=== PATIENT | female | born 2000 | race African-American/Black ===

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

== ENCOUNTER 2024-04-14 09:39 | Emergency (ER) | payer OTHER, SELFPAY ==
[2024-04-14] MEDS ORDERED: Famotidine/PF 20 mg/2ml Vial ONE (10:46)
[2024-04-14] MEDS ORDERED: Ondansetron PF 4 MG/2 ML Vial ONE (10:46)
[2024-04-14 11:21] LABS: #Basophils 0.04 10x3/uL (0.0-0.2); #Eosinphils 0.02 10x3/uL (0.0-0.5); #Monocytes 0.39 10x3/uL (0.0-1.1); #Neutrophils 4.48 10x3/uL (1.5-8.4); %Basophils 0.6 % (0.0-2.0); %Eosinophils 0.3 % (0.0-6.0); %Lymphocytes 23.7 % (18.0-47.0); %Neutrophils 69.1 % (40.0-75.0); Hematocrit 32.5 % (34.9-44.5); Hemoglobin 11.9 g/dL (12.0-15.5); Mean Corpuscular HGB CONC 36.6 g/dL (32.0-36.0); Mean Corpuscular Hemoglobin 31.5 pg (27.0-33.0); Mean Platelet Volume 10.7 fL (7.4-10.4); Platelet Count 285 10x3/uL (150-450); RBC Distribution Width 11.8 % (11.5-14.5); Red Blood Cell (RBC) Count 3.78 10x6/uL (3.90-5.03); White Blood Cell (WBC) Count 6.5 10x3/uL (3.5-10.5)
== END 2024-04-14 12:35 | disposition home or self-care (01) ==
LOC: CSHERS 09:39
DX: O21.0 Mild hyperemesis gravidarum (principal); Z3A.01 Less than 8 weeks gestation of pregnancy
CPT/HCPCS: 36415; 76815; 84702; 85025; 96374; 96375; J2405; S0028

== ENCOUNTER 2024-04-30 16:56 | Emergency (ER) | payer SELFPAY ==
[2024-04-30] MEDS ORDERED: Ondansetron PF 4 MG/2 ML Vial ONE (17:45)
[2024-04-30 17:47] LABS: #Basophils 0.02 10x3/uL (0.0-0.2); #Eosinphils 0.14 10x3/uL (0.0-0.5); #Monocytes 0.44 10x3/uL (0.0-1.1); #Neutrophils 3.68 10x3/uL (1.5-8.4); %Basophils 0.4 % (0.0-2.0); %Eosinophils 2.5 % (0.0-6.0); %Lymphocytes 23.8 % (18.0-47.0); %Monocytes 7.8 % (0.0-10.0); %Neutrophils 65.1 % (40.0-75.0); Hematocrit 33.5 % (34.9-44.5); Hemoglobin 12.4 g/dL (12.0-15.5); Mean Corpuscular Hemoglobin 30.7 pg (27.0-33.0); Mean Corpuscular Volume 82.9 fL (81.6-98.3); Mean Platelet Volume 10.5 fL (7.4-10.4); Platelet Count 325 10x3/uL (150-450); RBC Distribution Width 12.1 % (11.5-14.5); Red Blood Cell (RBC) Count 4.04 10x6/uL (3.90-5.03); White Blood Cell (WBC) Count 5.6 10x3/uL (3.5-10.5)
[2024-04-30 18:04] LABS: ALT (SGPT) 9 U/L (8-55); AST (SGOT) 12 U/L (5-34); Alkaline Phosphatase 60 U/L (40-110); Anion Gap 17 mmol/L (10-20); BUN (Urea Nitrogen) 6 mg/dL (7.0-18.7); Bilirubin, Total 0.5 mg/dL (0.2-1.2); Calc. Creatinine Clearance 0 mL/min (70-130); Calcium 9.5 mg/dL (7.8-10.44); Carbon Dioxide 15 mmol/L (22-29); Chloride 103 mmol/L (98-107); Estimated GFR 131; Globulin 3.6 g/dL (2.4-3.5); Glucose 92 mg/dL (70-105); Lipase 70 U/L (8-78); Potassium 3.1 mmol/L (3.5-5.1); Protein, Total 7.6 g/dL (6.0-8.3); Sodium 132 mmol/L (136-145)
[2024-04-30] MEDS ORDERED: Potassium Chloride 20 MEQ TAB ONE (18:45)
[2024-04-30 19:43] LABS: Bilirubin Neg (Negative); Blood, Urine Negative (Negative); Clarity Slightly Cloudy (Clear); Glucose, Urine (Dipstick) Normal (Negative); Ketone, Urine 150 mg/dL (Negative); Leukocyte 25 (Negative); Nitrite Negative (Negative); Protein, Urine (Dipstick) 30 mg/dl (Neg-Trace); Specific Gravity, Urine 1.025 (1.005-1.030); Urobilinogen Normal mg/dL (Less than 2)
[2024-04-30 20:04] LABS: Bacteria/HPF 3+ HPF (None Seen); CAUTI Indications for Culture Pelvic or flank pain; Mucous/LPF 4+ LPF (<2+); RBC/HPF None Seen HPF (0-3); Squamous Epithelial 0-3 HPF (0-3); Urine Culture Reflex No No; WBC/HPF 0-3 HPF (0-3)
== END 2024-04-30 20:30 | disposition home or self-care (01) ==
LOC: CSHERS 16:56
DX: O21.0 Mild hyperemesis gravidarum (principal); Z3A.09 9 weeks gestation of pregnancy; Z55.6 Problems related to health literacy
CPT/HCPCS: 36415; 80053; 81001; 83690; 84702; 85025; 93005; 93010; 94760; 96374; J2405

== ENCOUNTER 2024-10-27 00:45 | Inpatient (IN) | payer OTHER ==
[2024-10-27 01:18] VITALS: BMI 33.2
[2024-10-27 01:52] LABS: Fetal Membranes Rupture RUPTURE DETECTED (No Rupture)
[2024-10-27] MEDS ORDERED: Misoprostol 200 MCG TAB RC PRN (03:15)
[2024-10-27] MEDS ORDERED: hydrALAZINE 20 MG/ML VIAL SLOW IVP PRN ×2 (03:15→17:06)
[2024-10-27] MEDS ORDERED: Lidocaine 1% (PF) 30 ML VIAL SC PRN (03:15)
[2024-10-27] MEDS ORDERED: Acetaminophen 500 MG TAB PO PRN (03:15)
[2024-10-27] MEDS ORDERED: Diphenoxylate HCl/Atropine Tablet PO PRN (03:15)
[2024-10-27] MEDS ORDERED: Carboprost 250 MCG/ML AMP IM PRN (03:15)
[2024-10-27] MEDS ORDERED: Ibuprofen 800 MG TAB PO PRN (03:15)
[2024-10-27] MEDS ORDERED: Promethazine HCl 25 MG/ML VIAL IM PRN ×3 (03:15→17:06)
[2024-10-27] MEDS ORDERED: Oxytocin 30 units/NS 500 ML 500 ML IVPB SCH (03:15)
[2024-10-27] MEDS ORDERED: fentaNYL 50 mcg/mL 1 mL Vial SLOW IVP PRN (03:17)
[2024-10-27] MEDS ORDERED: Tranexamic Acid 1,000 MG/10 ML VIAL IVP PRN (03:18)
[2024-10-27 03:22] LABS: Hematocrit 31.4 % (34.9-44.5); Hemoglobin 10.7 g/dL (12.0-15.5); Mean Corpuscular HGB CONC 34.1 g/dL (32.0-36.0); Mean Corpuscular Hemoglobin 30.1 pg (27.0-33.0); Mean Corpuscular Volume 88.2 fL (81.6-98.3); Mean Platelet Volume 12.9 fL (7.4-10.4); Platelet Count 195 10x3/uL (150-450); RBC Distribution Width 12.7 % (11.5-14.5); Red Blood Cell (RBC) Count 3.56 10x6/uL (3.90-5.03); White Blood Cell (WBC) Count 6.8 10x3/uL (3.5-10.5)
[2024-10-27] MEDS: Lactated Ringer's 1,000 ML IV SCH (03:30)
[2024-10-27] MEDS: Penicillin G Potassium 5 MILL.UNITS in Sodium Chloride 0.9% 100 ML IVPB SCH (03:39)
[2024-10-27 03:50] LABS: HBsAg Index 0.23 S/CO (0-0.99); Hep B Surf Ag - L&D Non-Reactive S/CO (NonReactive)
[2024-10-27 03:51] LABS: Syphilis Antibody Nonreactive (Nonreactive); Syphilis Antibody Index 0.03 S/CO (<1.00 Non-Reactive)
[2024-10-27 05:46] LABS: HIV (1/2) Antibody/Antigen Non-Reactive (NonReactive); HIV 1/2 INDEX 0.15 S/CO (<1.00)
[2024-10-27] MEDS: Penicillin G 2.5 MILL.units 2.5 MILL.UNITS in Premix 1 BAG IVPB SCH (07:18)
[2024-10-27] MEDS: Oxytocin 30 units/NS 500 ML 500 ML IVPB SCH (07:54)
[2024-10-27] MEDS: Calcium Carbonate 500 MG ChewTAB PO SCH (08:49)
[2024-10-27] MEDS ORDERED: ePHEDrine Sulfate 50 MG/10 ML VIAL SLOW IVP PRN (10:15)
[2024-10-27] MEDS ORDERED: Naloxone HCl 0.4 mg/ml Vial IVP PRN ×2 (10:15)
[2024-10-27] MEDS ORDERED: Ondansetron PF 4 MG/2 ML Vial IVP PRN ×2 (10:15→17:06)
[2024-10-27] MEDS ORDERED: Moisturizing Cream (Eucerin) 113 GM JAR TOP PRN (10:15)
[2024-10-27] MEDS ORDERED: diphenhydrAMINE 50 MG/ML VIAL IVP PRN (10:15)
[2024-10-27] MEDS ORDERED: Lactated Ringer's 500 ML IV PRN (10:15)
[2024-10-27] MEDS ORDERED: Communication Order-Pharmacy FS SCH (10:15)
[2024-10-27] MEDS: fentaNYL 2 mcg/Ropivacaine 0.2% Epidural 100 ML CADD EPIDURAL SCH (10:27)
[2024-10-27] MEDS: Ondansetron PF 4 MG/2 ML Vial IVP PRN (11:55)
[2024-10-27] MEDS ORDERED: Bupivacaine 0.25% HCL 30 ML VIAL ONE (13:00)
[2024-10-27] MEDS ORDERED: diphenhydrAMINE 25 MG CAP PO PRN (17:06)
[2024-10-27] MEDS ORDERED: Benzocaine-Menthol 82.5 ML CAN TOP PRN (17:06)
[2024-10-27] MEDS ORDERED: Milk Of Magnesia 30 ML UDCUP PO PRN (17:06)
[2024-10-27] MEDS ORDERED: HYDROcodone/Acetaminophen 5/325 mg Tablet PO PRN (17:06)
[2024-10-27] MEDS ORDERED: Bisacodyl 10 MG SUPP PR PRN (17:06)
[2024-10-27] MEDS ORDERED: Lanolin Ointment 7 GM TUBE TOP PRN (17:06)
[2024-10-27] MEDS: fentaNYL/Ropivacaine Epidural 100 ML ONE (17:07)
[2024-10-27] MEDS: Famotidine/PF 20 mg/2ml Vial ONE (17:11)
[2024-10-27] MEDS: Ferrous Sulfate 325 MG TAB PO SCH (18:00)
[2024-10-27] MEDS: Boostrix 0.5 ML (Tdap) VIAL (>/=7 yrs of age) IM ONE (18:00)
[2024-10-27] MEDS: Acetaminophen 325 MG TAB PO PRN (20:39)
[2024-10-27] MEDS: Ibuprofen 800 MG TAB PO SCH (21:46)
[2024-10-27] MEDS: Docusate 100 MG CAP PO SCH (21:47)
[2024-10-28] MEDS: Prenatal Vitamin 1 TAB PO SCH (08:54)
[2024-10-29 20:23] VITALS: BP 119/67; TEMP 98.1
== END 2024-10-29 21:50 | disposition home or self-care (01) | DRG 807 ==
LOC: CSHLD/OP 00:45 → CSHLD 02:50 → CSHPED 17:25
PROVIDERS: ADMIT Family Medicine; ATTEND Family Medicine
PROC: 10E0XZZ Delivery of Products of Conception, External Approach (ICD-10-PCS; principal; 2024-10-27)
DX: O99.824 Streptococcus B carrier state complicating childbirth (principal); Z37.0 Single live birth; Z3A.37 37 weeks gestation of pregnancy
CPT/HCPCS: 36415; 51702; 84112; 85027; 86762; 86780; 86850; 86900; 86901; 87340; 87389; 99285; J0665; J2405; J2540; J2590; J3490; J7120

== ENCOUNTER 2025-10-08 15:27 | Emergency (ER) | payer OTHER ==
[2025-10-08 16:30] LABS: Pregnancy Test - Urine (BHCG) Negative (Negative); Pregu Control Background? CLEAR/WHITE (CLR/WHITE); Pregu Control Bar Appear? YES (CONTROL BAR)
[2025-10-08 16:31] LABS: Glucose, Urine (Dipstick) Normal (Negative); Leukocyte Negative (Negative); Protein, Urine (Dipstick) Negative (Neg-Trace); Specific Gravity, Urine 1.020 (1.005-1.030)
[2025-10-08 16:45] LABS: CAUTI Indications for Culture Pelvic or flank pain; Mucous/LPF Rare LPF (<2+); RBC/HPF 0-3 HPF (0-3); WBC/HPF 0-3 HPF (0-3)
[2025-10-08 16:46] LABS: Urine Culture Reflex No No
[2025-10-09 00:44] LABS: Chlamydia by PCR, Vaginal Swab Not Detected (NotDetected); GC by PCR, Vaginal Swab Not Detected (NotDetected)
== END 2025-10-08 18:18 | disposition home or self-care (01) ==
LOC: CSHERS 15:27
DX: N76.0 Acute vaginitis (principal); B96.89 Other specified bacterial agents as the cause of diseases classified elsewhere
CPT/HCPCS: 81001; 81025; 87480; 87491; 87510; 87591; 87660; 99283